=== PATIENT | female | born 2000 | race Caucasian/White ===

== ENCOUNTER 2021-04-09 11:35 | Outpatient (CLI) | payer MEDICAID | END 2021-04-09 11:36 | disposition critical access hospital (66) | LOC: EMS 11:35 | DX: R51.9 Headache, unspecified (principal); R53.1 Weakness; R50.9 Fever, unspecified; R05.9 Cough, unspecified; R06.00 Dyspnea, unspecified | CPT/HCPCS: A0425; A0429 ==

== ENCOUNTER 2021-04-09 11:38 | Emergency (ER) | payer MEDICAID ==
[2021-04-09] MEDS ORDERED: BENZONATATE 100 MG CAPSULE PO STA (11:50)
[2021-04-09] MEDS ORDERED: ALBUTEROL 1 PUFF INH STA (11:50)
[2021-04-09] MEDS ORDERED: ACETAMINOPHEN 500 MG TABLET PO STA (11:51)
[2021-04-09] MEDS ORDERED: ONDANSETRON ODT 4 MG TABLET TL STA (11:51)
--- NOTE | 2021-04-09 11:52 | ED Physician Documentation ---
PD HPI URI - Stated complaint Stated Complaint: SOA/LUEVANO/COUGH - History obtained from History obtained from: Patient, EMS - History of Present Illness Timing - onset: How many days ago (2-3) Timing duration: Days (2-3) Timing details: Abrupt onset, Still present Associated symptoms: Fever, Chills, Nasal congestion, Swollen nodes, Dry cough, Dyspnea (feeling of tightness in chest) Contributing factors: Sick contact (her 1 1/2 year old son with URI symptoms and had been exposed to COVID at his daycare. He was sick 1-2 days prior to patient getting ill.). No: COPD / asthma Improves by: No: Rest Worsened by: Activity Similar symptoms before: Has not had sx before Recently seen: Not recently seen Review of Systems Constitutional: reports: Fever, Chills, Myalgias Nose: reports: Rhinorrhea / runny nose, Congestion Throat: reports: Sore throat Cardiac: denies: Chest pain / pressure Respiratory: reports: Dyspnea, Cough. denies: Wheezing GI: reports: Nausea. denies: Vomiting, Diarrhea Skin: denies: Rash Neurologic: reports: Headache. denies: Confused, Altered mental status PD PAST MEDICAL HISTORY - Past Medical History Cardiovascular: None Respiratory: None Endocrine/Autoimmune: None - Present Medications Home Medications: Ambulatory Orders Medication Instructions Recorded Confirmed Albuterol Sulf [Ventolin Hfa 2 - 3 puffs INH Q4HR PRN #1 inhaler 04/09/21 Inhaler] Benzonatate [Tessalon] 100 mg PO TID PRN #20 cap 04/09/21 Ondansetron Odt [Zofran] 4 mg TL Q6H PRN #15 tablet 04/09/21 dexAMETHasone [Decadron] 4 mg PO DAILY #5 tablet 04/09/21 - Allergies Allergies/Adverse Reactions: Allergies Allergy/AdvReac Type Severity Reaction Status Date / Time No Known Drug Allergies Allergy Verified 04/09/21 12:23 PD ED PE NORMAL - Vitals Vital signs reviewed: Yes - General General: Alert and oriented X 3, No acute distress, Well developed/nourished - HEENT HEENT: Ears normal, Pharynx benign - Neck Neck: Supple, no meningeal sign, No adenopathy - Cardiac Cardiac: RRR, No murmur - Respiratory Respiratory: Clear bilaterally - Abdomen Abdomen: Soft, Non tender - Derm Derm: Normal color, Warm and dry - Extremities Extremities: No edema, No calf tenderness / cord - Neuro Neuro: Alert and oriented X 3, No motor deficit, Normal speech Results - Vitals Vitals: Vital Signs - 24 hr 04/09/21 04/09/21 04/09/21 12:08 12:12 14:15 Temperature 36.6 C Heart Rate 78 80 68 Respiratory 24 20 20 Rate Blood Pressure 158/106 H 143/110 H O2 Saturation 98 98 98 04/09/21 14:16 Temperature 37 C Heart Rate 68 Respiratory 20 Rate Blood Pressure 143/110 H O2 Saturation 98 Oxygen O2 Source Room air - Rads (name of study) chest xray Radiology: Prelim report reviewed (no infiltrates), See rad report PD MEDICAL DECISION MAKING - ED course Complexity details: re-evaluated patient (she syas she feels much improved breathing with MDI. ), considered differential (seems likely COVID. Can give ALbuterol, tessalon and decadron to help with tightness/dyspnea. ), d/w patient Departure - Departure Disposition: Home, Self Care Clinical Impression: Upper respiratory infection Qualifiers: URI type: unspecified URI Qualified Code(s): J06.9 - Acute upper respiratory infection, unspecified Dyspnea Qualifiers: Dyspnea type: shortness of breath Qualified Code(s): R06.02 - Shortness of breath Condition: Stable Record reviewed to determine appropriate education?: Yes Instructions: ED URI Viral W Wheezing Prescriptions: Albuterol Sulf [Ventolin Hfa Inhaler] 2 - 3 puffs INH Q4HR PRN #1 inhaler PRN Reason: Shortness Of Air/Wheezing dexAMETHasone [Decadron] 4 mg PO DAILY #5 tablet Benzonatate [Tessalon] 100 mg PO TID PRN #20 cap PRN Reason: Cough Ondansetron Odt [Zofran] 4 mg TL Q6H PRN #15 tablet PRN Reason: Nausea / Vomiting Comments: Use the albuterol inhaler 2 to 3 puffs 4 times a day regularly for the next several days to week. Use it extra times if needed for shortness of breath. Use it with the spacer as instructed here in the ER for best effect. Decadron steroid for inflammation of the airways should help with symptoms. Take it daily for the next 5 days. Stay well-hydrated. Tylenol every 4-6 hours if needed for fevers and aches. Add ondansetron if needed for nausea and benzonatate if needed for cough. I transmitted your prescriptions to [facility] pharmacy in [place]. You have a Covid test pending. You need to self quarantine until the result is done and negative. Do not leave your house. Do not get near anybody. The results should be done in 48 to 72 hours, but sometimes longer. We will call with a positive result, the fastest way to get a negative result for confirmation though is to go to the hospital website at [email or web address], click on the my [employer] tab and sign up for the patient portal. If any friends or family get sick and would like to have a Covid test done, but do not have signs or symptoms that would necessitate being hospitalized, we encourage testing throughone of the local pharmacies or the Health Department. Call them to schedule an appointment. Discharge Date/Time: 04/09/21 14:18
--- NOTE | 2021-04-09 12:28 | XRAY Report ---
PROCEDURE: Chest 1 View X-Ray INDICATIONS: cough/dyspnea TECHNIQUE: One view of the chest was acquired. COMPARISON: None FINDINGS: Surgical changes and devices: None. Lungs and pleura: No pleural effusions or pneumothorax. Lungs are clear. Mediastinum: Mediastinal contours appear normal. Heart size is normal. Bones and chest wall: No suspicious bony lesions. Overlying soft tissues appear unremarkable. IMPRESSION: Portable chest within normal limits for age. Reviewed by: Justin Taylor MD on 04/09/2021 11:27 AM [facility] Approved by: Justin Taylor MD on 04/09/2021 11:27 AM [facility] Station ID: [id number]
[2021-04-09] MEDS ORDERED: CHERRY SYRUP 10 ML UDC PO ONE (13:04)
[2021-04-09] MEDS ORDERED: DEXAMETHASONE 10 MG/ML VIAL PO STA (13:04)
[2021-04-09 14:16] VITALS: BP 143/110
== END 2021-04-09 14:18 | disposition home or self-care (01) ==
LOC: ED 11:38
DX: J06.9 Acute upper respiratory infection, unspecified (principal); Z20.822 Contact with and (suspected) exposure to COVID-19; R05.1 Acute cough
CPT/HCPCS: 71045; 87635; 94640; 94664; 99283; 99284; A9270; Q0162

== ENCOUNTER 2021-04-09 14:17 | Outpatient (CLI) | payer MEDICAID | END 2021-04-09 14:18 | disposition home or self-care (01) | LOC: EMS 14:17 | PROVIDERS: ATTEND Emergency Medicine | DX: R05.9 Cough, unspecified (principal); R09.89 Other specified symptoms and signs involving the circulatory and respiratory systems | CPT/HCPCS: A0425; A0428 ==